=== PATIENT | male | born 1960 | race Caucasian/White ===

== ENCOUNTER 2019-07-03 16:32 | Outpatient (CLI) | payer OTHER ==
--- NOTE | 2019-07-05 23:49 | XRAY Report ---
Reason: RIGHT KNEE PAIN Procedure Date: 07/03/2019 Accession Number: [id number] / [id number] Procedure: XR - Knee 3 View RT CPT Code: Final Report FULL RESULT: EXAM: RIGHT KNEE RADIOGRAPHY EXAM DATE: 07/03/2019 04:47 PM. CLINICAL HISTORY: Right knee pain. COMPARISON: None. TECHNIQUE: 3 views. FINDINGS: Bones: Normal. No fractures or bone lesions. Joints: Minimal tricompartmental degenerative changes with spurring. No effusion. No subluxations. Soft Tissues: Normal. No soft tissue swelling. IMPRESSION: 1. No acute abnormality seen in the right knee. 2. Minimal tricompartmental degenerative changes. RADIA
== END 2019-07-03 16:33 | disposition home or self-care (01) ==
LOC: DI 16:32
PROVIDERS: ATTEND Nurse Practitioner Family
DX: M17.11 Unilateral primary osteoarthritis, right knee (principal)

== ENCOUNTER 2020-03-11 07:10 | Outpatient (CLI) | payer OTHER ==
[2020-03-11 11:35] LABS: ALBUMIN 4.2 g/dL (3.2-5.5); ALBUMIN/GLOBULIN RATIO 1.6 (1.0-2.2); ALKALINE PHOSPHATASE 50 IU/L (42-121); ALT ALANINE AMINOTRANSFERASE 13 IU/L (10-60); AST ASPARTATE AMINOTRANSFERASE 18 IU/L (10-42); BILIRUBIN,TOTAL 0.9 mg/dL (0.2-1.0); BUN - BLOOD UREA NITROGEN 18 mg/dL (6-20); CALCIUM 9.2 mg/dL (8.5-10.3); CARBON DIOXIDE - CO2 25 mmol/L (21-32); CHLORIDE 105 mmol/L (101-111); CHOL/HDL RATIO 2.6 (<5.0); CHOLESTEROL 161 mg/dL; GLUCOSE 81 mg/dL (70-100); HDL CHOLESTEROL 61 mg/dL; LDL CHOLESTEROL,CALCULATED 83 mg/dL; LDL/HDL RATIO 1.4 (<3.6); SODIUM 141 mmol/L (135-145); TOTAL PROTEIN 6.9 g/dL (6.7-8.2); VLDL CHOLESTEROL 17 mg/dL
[2020-03-11 11:43] LABS: BASOPHILS % (AUTO) 0.8 %; EOSINOPHILS # (AUTO) 0.2 10^3/uL (0.0-0.7); EOSINOPHILS % (AUTO) 3.6 %; HGB - HEMOGLOBIN 13.7 g/dL (14.0-18.0); LYMPHOCYTES # (AUTO) 1.8 10^3/uL (1.5-3.5); MEAN CORPUSCULAR HEMOGLOBIN 33.4 pg (27.0-31.0); MEAN CORPUSCULAR VOLUME 98.3 fL (80.0-94.0); MEAN PLATELET VOLUME 10.8 fL (7.4-11.4); MONOCYTES # (AUTO) 0.4 10^3/uL (0.0-1.0); MONOCYTES % (AUTO) 7.6 %; NEUTROPHILS # (AUTO) 2.8 10^3/uL (1.5-6.6); NEUTROPHILS % (AUTO) 52.8 %; PLT - PLATELET COUNT 199 10^3/uL (130-450); RED CELL DISTRIBUTION WIDTH 12.9 % (12.0-15.0); WHITE BLOOD COUNT 5.3 x10^3/uL (4.8-10.8)
== END 2020-03-11 23:59 | disposition home or self-care (01) ==
LOC: LAB.WCP 07:10
PROVIDERS: ATTEND Family Medicine
DX: Z00.00 Encounter for general adult medical examination without abnormal findings (principal)
CPT/HCPCS: 36415; 80053; 80061; 83721; 84443; 85025

== ENCOUNTER 2021-08-24 10:28 | Outpatient (CLI) | payer OTHER ==
--- NOTE | 2021-08-24 13:12 | XRAY Report ---
PROCEDURE: Chest 2 View X-Ray INDICATIONS: WHEEZING TECHNIQUE: 2 view(s) of the chest. COMPARISON: None. FINDINGS: Surgical changes and devices: None. Lungs and pleura: No pleural effusions or pneumothorax. Lungs are clear. Mediastinum: Mediastinal contours are normal. Heart size is normal. Bones and chest wall: No suspicious bony abnormalities. Soft tissues appear unremarkable. IMPRESSION: No evidence acute pulmonary process. Reviewed by: Prasanth Estrella MD on 08/24/2021 1:11 PM PDT Approved by: Prasanth Estrella MD on 08/24/2021 1:11 PM PDT Station ID: [id number]
== END 2021-08-24 23:59 | disposition home or self-care (01) ==
LOC: DI.N 10:28
PROVIDERS: ATTEND Physician Assistant Medical
DX: R06.2 Wheezing (principal)